=== PATIENT | female | born 1940 | race Caucasian/White ===

== ENCOUNTER 2024-03-27 08:22 | Day surgery (SDC) | payer OTHER, SELFPAY ==
[2024-03-27] VITALS (14 sets, daily range): BP systolic 123–155; BP diastolic 53–105; BMI 25.7
[2024-03-27 08:54] LABS: Hematocrit 31.7 % (37.0-47.0); Hemoglobin 10.7 g/dL (12.0-16.0); Mean Corp Hgb Conc. 33.8 g/dL (33.0-37.0); Mean Corpuscular Hgb 30.3 pg (27.0-31.0); Mean Corpuscular Volume 89.8 fL (81.0-99.0); Mean Platelet Volume 9.5 fL (7.4-10.4); Platelet Count 338 10^3/uL (130-400); Red Blood Cell Count 3.53 10^6/uL (4.20-5.40); Red Cell Dist. Width 13.8 % (11.5-14.5); White Blood Cell Count 10.2 10^3/uL (4.8-10.8)
[2024-03-27 09:29] LABS: Glucose - Point of Care 130 mg/dl (70-99)
[2024-03-27 09:31] LABS: Hematocrit 30.7 % (37.0-47.0); Hemoglobin 10.5 g/dL (12.0-16.0); Mean Corp Hgb Conc. 34.2 g/dL (33.0-37.0); Mean Corpuscular Hgb 30.3 pg (27.0-31.0); Mean Corpuscular Volume 88.7 fL (81.0-99.0); Mean Platelet Volume 9.7 fL (7.4-10.4); Platelet Count 312 10^3/uL (130-400); Red Blood Cell Count 3.46 10^6/uL (4.20-5.40); Red Cell Dist. Width 13.7 % (11.5-14.5); White Blood Cell Count 10.9 10^3/uL (4.8-10.8)
[2024-03-27] MEDS: LOW STRENGTH ASPIRIN 81 MG PO (09:40)
[2024-03-27] MEDS: NSS 179 ML IV (09:43)
[2024-03-27 12:08] LABS: ACT-LR - POC 244 Seconds (116-155)
--- NOTE | 2024-03-27 12:55 | ITS.CL.CATH ---
Coordinate Measuring Equipment Operator - Catheterization
Cardiac Catheterization
Procedure Report:
CARDIAC CATHETERIZATION REPORT
Date of Procedure: 03/27/2024
Referring: Addy Samson DO
Indication: Angina with high-grade proximal LAD stenosis by coronary CTA
�
HEMODYNAMIC DATA
AO: 138/60
LV: 138/15
�
LEFT VENTRICULOGRAPHY: Not performed
�
CORONARY ANGIOGRAPHY
Dominance: Right
Left Main: Normal
LAD: 70-80% proximal LAD stenosis with 20% mid LAD stenosis and otherwise trivial luminal irregularities in the LAD system
Circumflex: There is a huge ramus intermedius with trivial luminal disease. The circumflex proper gives rise to a tiny OM1 and a medium sized OM 2 before terminating in the AV groove with a small left posterolateral branch.
RCA: The RCA is dominant and occluded in the midportion distal to the takeoff of a large acute marginal branch. There is collateral flow to the distal PDA from the large acute marginal branch. The predominant flow to the PDA and posterolateral
branches is via LAD septal collaterals to the PDA and a LAD diagonal collateral to the distal right posterolateral branch. These are well-developed collaterals.
Angioplasty: At the conclusion the diagnostic study we proceeded with LAD intervention. A 6 [place] EBU 3.5 guide catheter was used. Heparin was used for anticoagulation. Plavix 600 mg was administered the procedure conclusion. A BMW wire was
easily placed into the apical LAD. A 3.0 x 12 [place] LIZBETH was advanced into the LAD but provided more length then we were wanting and was removed and replaced with a 3.0 x 8 [place] LIZBETH. We noticed decremental flow and a small first diagonal
branch when the 3.0 x 12 Chris stent was being positioned. Once the stent was removed a second BMW wire was advanced into the LAD to see if we could wire the first diagonal branch which was not possible. The 3.0 x 8 [place] LIZBETH was then
deployed at 15 gregg and postdilated with a 3.0 NC Euphora to 17 gregg. The final angiographic result was outstanding with no residual stenosis. The proximal edge of the stent was placed just inside the ostium of the LAD. There was no visible
sidebranch occlusion. Patient tolerated the procedure well.
�
Closure Device: None-the procedure was performed via the right radial artery. The Fabricio's test was normal prior to the procedure.
�
Radiation (mGy): 520
DAP (cm2.Gy): 35.8
Fluoroscopy time: 9.2 minutes
�
CONCLUSIONS
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
2:�Successful stenting of proximal LAD lesion using 3.0 x 8 [place] frontier LIZBETH with outstanding angiographic result
3. Recommend dual antiplatelet therapy for 12 months then aspirin monotherapy for life
4. Continue aggressive risk factor modification efforts
�
�
Copy to: Addy Samson DO, Shane Baird MD
�
Paul Main MD, [facility], [facility]
[2024-03-27 13:09] LABS: Glucose - Point of Care 134 mg/dl (70-99)
--- NOTE | 2024-03-27 15:18 | W.PN.UPDATE ---
Update Note
Progress Note Update
83 yo WF s/p PCI LAD (same day). She denies cp, sob, alejandra diet, voiding, R rad with TR band scant ecchymosis, EKG SR no ST changes. She will be on DAPT ASA/plavix. He will hold Metformin 48 hours post procedure. We will add PPI while on DAPT.
Activity restrictions reviewed. Cardiac rehab c/s. She will f/u Dr. Samson in 2 weeks. She is for d/c home after 6pm if rad site stable and seen by Dr. Main.
CONCLUSIONS
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
2:�Successful stenting of proximal LAD lesion using 3.0 x 8 [place] LIZBETH with outstanding angiographic result
3. Recommend dual antiplatelet therapy for 12 months then aspirin monotherapy for life
4. Continue aggressive risk factor modification efforts
�
�
Copy to: Addy Samson DO, Shane Baird MD
[2024-03-30 08:40] LABS: ACT-LR - POC > 397 Seconds (116-155)
== END 2024-03-27 18:26 | disposition home or self-care (01) ==
LOC: CATH 08:22
PROVIDERS: ATTENDING PHYSICIAN Internal Medicine Cardiovascular Disease; FAMILY PHYSICIAN Family Medicine; OTHER PHYSICIAN Internal Medicine Cardiovascular Disease
DX: I25.119 Atherosclerotic heart disease of native coronary artery with unspecified angina pectoris (principal); I42.8 Other cardiomyopathies; I11.0 Hypertensive heart disease with heart failure; I50.22 Chronic systolic (congestive) heart failure; E78.5 Hyperlipidemia, unspecified; E11.9 Type 2 diabetes mellitus without complications; Z79.82 Long term (current) use of aspirin; Z79.84 Long term (current) use of oral hypoglycemic drugs; Z79.02 Long term (current) use of antithrombotics/antiplatelets
CPT/HCPCS: C1769 ×2; C1725; C1874; C1894; 82962; 85027; 85347; 93005; 93458; C9600; Q9967